=== PATIENT | female | born 1950 | race Caucasian/White ===

== ENCOUNTER → 2017-10-10 | Outpatient (REF) | payer MEDICARE ==
[2017-10-11 12:26] LABS: ALBUMIN 4.1 GM/DL (3.2-5.2); ALBUMIN/GLOBULIN RATIO 1.11 (1.00-1.93); BILIRUBIN,TOTAL 0.3 MG/DL (0.2-1.0); CALCIUM LEVEL 9.5 MG/DL (8.8-10.2); CREATININE FOR GFR 1.1 MG/DL (0.55-1.02); GLOMERULAR FILTRATION RATE 52.6 (>45); POTASSIUM SERUM 3.5 MEQ/L (3.5-5.1); TOTAL PROTEIN 7.8 GM/DL (6.4-8.2)
== END ==
LOC: M SFHCCLAY 14:56
PROVIDERS: ATTEND Family Medicine
DX: I10 Essential (primary) hypertension (principal); E03.9 Hypothyroidism, unspecified

== ENCOUNTER 2018-04-09 13:53 | Outpatient (RCR) | payer MEDICARE | END 2018-04-19 | LOC: M ST 13:53 | DX: G20 Parkinson's disease (principal) | CPT/HCPCS: 92507 ==

== ENCOUNTER 2018-04-22 10:18 | Outpatient (RCR) | payer MEDICARE | END 2018-05-20 | LOC: M ST 10:18 | DX: Z51.89 Encounter for other specified aftercare (principal); G20 Parkinson's disease; R47.89 Other speech disturbances | CPT/HCPCS: 92507 ==

== ENCOUNTER → 2018-06-02 | Outpatient (CLI) | payer MEDICARE | LOC: M SLEEP 19:36 | DX: G47.33 Obstructive sleep apnea (adult) (pediatric) (principal) | CPT/HCPCS: 95811 ==

== ENCOUNTER → 2019-02-13 | Outpatient (REF) | payer MEDICARE ==
[2019-02-13 17:20] LABS: ALBUMIN 3.8 GM/DL (3.2-5.2); BASO # 0.1 10^3/uL (0.0-0.2); BASO % 0.5 % (0.0-1.0); BILIRUBIN,TOTAL 0.5 MG/DL (0.2-1.0); CALCIUM LEVEL 9.3 MG/DL (8.8-10.2); CHOLESTEROL RISK RATIO 3.758 (<5); CREATININE FOR GFR 1.09 MG/DL (0.55-1.30); EOS # 0.1 10^3/uL (0.0-0.50); EOS % 0.6 % (0.0-3.0); HEMATOCRIT 42.3 % (36.0-47.0); HEMOGLOBIN 13.5 g/dl (12.0-15.5); LYMPH # 1.8 10^3/uL (1.5-4.5); LYMPH % 13.5 % (24.0-44.0); MEAN CORPUSCULAR HEMOGLOBIN 29.9 pg (27.0-33.0); MEAN CORPUSCULAR HGB CONC 31.9 g/dl (32.0-36.5); MEAN CORPUSCULAR VOLUME 93.6 fl (80.0-96.0); MONO # 0.9 10^3/uL (0.0-0.8); MONO % 6.7 % (0.0-5.0); NEUTROPHILS # 10.4 10^3/uL (1.8-7.7); NEUTROPHILS % 78.5 % (36.0-66.0); PLATELET COUNT, AUTOMATED 295 10^3/uL (150-450); POTASSIUM SERUM 4.2 MEQ/L (3.5-5.1); RED BLOOD COUNT 4.52 10^6/uL (4.00-5.40); TOTAL PROTEIN 7.3 GM/DL (6.4-8.2); WHITE BLOOD COUNT 13.3 10^3/uL (4.0-10.0)
[2019-02-13 17:34] LABS: HEMOGLOBIN A1c 5.7 %
== END ==
LOC: M SFHCCLAY 10:38
PROVIDERS: ATTEND Family Medicine
DX: E03.9 Hypothyroidism, unspecified (principal); I10 Essential (primary) hypertension; R73.01 Impaired fasting glucose; E61.1 Iron deficiency; E78.5 Hyperlipidemia, unspecified